=== PATIENT | female | born 1955 | race Caucasian/White ===

== ENCOUNTER 2016-06-11 16:08 | Emergency (ER) | payer MEDICARE, MEDICAID ==
--- NOTE | ~2016-06-11 | ER ---
PATIENT'S NAME: JORDEN NEWMAN [facility] AGE: 60 Y [address] ROOM: [place] [address] LOCATION: [facility] ADMIT DATE: 06/11/2016 ER/Outpatient Report DISCHARGE DATE: 06/11/2016 FAMILY PHYSICIAN: Amaya Tran MD ATTENDING PHYSICIAN: Gucci Gamez CHIEF COMPLAINT: Cat scratch. TIME OF THE PATIENT ARRIVAL: 1608 hours. TIME OF THE PATIENT EVALUATION: 1620 hours. HISTORY OF PRESENT ILLNESS: This 60-year-old female presents to the ER who states that she was scratched by her kitten on the right anterior hallman of her leg. She states it occurred this morning. She states that she chronically has a swollen right lower extremity. She states that she has lost several 100 pounds and her legs have remained big. She states that she has had anterior redness to her hallman for approximately 3 weeks. She has not been running any fevers. She states that her leg does feel tight. She does take Lasix for this. She states that she believes that she needs to update on her tetanus shot. She denies any shortness of breath or any other problems at this time. ALLERGIES: PENICILLIN, SULFA, AND LEVAQUIN. MEDICATIONS: Please see medication list nurse's notes. PAST MEDICAL HISTORY: 1. Stage 4 kidney failure. 2. Kidney stones. 3. CHF. 4. Hypertension. 5. Hypothyroidism. 6. Acid reflux. 7. Anemia. 8. Constipation. SOCIAL HISTORY: Denies smoking, drug, or alcohol use. PATIENT'S NAME: JORDEN NEWMAN [facility] AGE: 60 Y [address] ROOM: [place] [address] LOCATION: [facility] ADMIT DATE: 06/11/2016 ER/Outpatient Report DISCHARGE DATE: 06/11/2016 FAMILY PHYSICIAN: Amaya Tran MD ATTENDING PHYSICIAN: Gucci Gamez REVIEW OF SYSTEMS: A 10-point review of system was completed and was negative with the exception of those discussed in the HPI. PHYSICAL EXAMINATION: VITAL SIGNS: Height 4 feet, 9 inches stated, weight 74.6 kg taken, blood pressure is 140/68, pulse 71, respirations 16, temperature 97.3 degrees tympanically, and saturations 99% on room air. Dillwyn Coma Score is 15. GENERAL: Alert, calm, well-developed female, in no acute distress. LUNGS: Clear to auscultation bilaterally. No wheeze or crackles. Normal respiratory effort. HEART: Regular rate and rhythm. No lifts, thrills, or murmurs. EXTREMITIES: She does have a swollen right lower extremity compared to her left. She has some erythema noted to the anterior portion of her hallman and it is not circumferential. It is not particularly warm to palpation. It is slightly tender. She has a superficial scratch noted across the anterior portion of her right hallman. She has a little bit of serosanguineous fluid to that leg as well. She has a good pulse to that lower extremity. She has full range of motion of all of her limbs. LABS AND X-RAYS: None were done per the patient request. IMPRESSION: Right lower extremity swelling with mild cellulitis and a recent cat scratch to right anterior hallman. ASSESSMENT AND PLAN: Discussed the patient's care with Dr. Gamez. The patient did not want a workup for DVT in her legs and she states that she would just like her tetanus shot and antibiotics for this. We did update her on her tetanus shot. Since the patient is allergic to several antibiotics, we will place her on clindamycin to use as directed. I would like her to do close followup with her primary care. CLYDE EDMONDS PA-C FOR MD SCAR ALONSO/julio /[id number] d: t: 06/16/16 1154, OUTPATIENT REPORT
[~2016-06-11 16:08] MED LIST: ASPIRIN LO-DOSE81 MG PO; BUMEX1 MG PO; CERTA PLUS TAB1 EACH PO; COLACE100 MG PO; CRANBERRY500 M3 PO; FEOSOL325 MG PO; K-TAB 10MEQ10 MEQ PO; LEVOTHROID (S125 MCG PO; LOPRESSOR100 MG PO; MACRODANTIN100 MG PO; PEPCID20 MG PO; ROCALTROL0.25 MCG PO; SENNA LAX8.6 MG PO; SENNA S TABLET1 EACH PO; TYLENOL EXTRA500 MG PO; TYLENOL WITH C1 EACH PO; ULTRAM50 MG PO; VITAMIN D-32000 UNI1 PO; WELLBUTRIN XL300 M2 PO; ZYLOPRIM300 MG PO; ZYRTEC10 MG PO
== END 2016-06-11 17:09 | disposition disaster alternative care site (69) ==
LOC: GACC 16:08
DX: S80.811A Abrasion, right lower leg, initial encounter (principal); L03.115 Cellulitis of right lower limb; Z23 Encounter for immunization; I11.0 Hypertensive heart disease with heart failure; I50.9 Heart failure, unspecified; E03.9 Hypothyroidism, unspecified; K21.9 Gastro-esophageal reflux disease without esophagitis; D64.9 Anemia, unspecified; Z88.0 Allergy status to penicillin; Z88.2 Allergy status to sulfonamides; Z88.8 Allergy status to other drugs, medicaments and biological substances; W55.03XA Scratched by cat, initial encounter